=== PATIENT | female | born 1965 | race Caucasian/White ===

== ENCOUNTER 2018-04-29 13:06 | Emergency (ER) | payer BC ==
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
== END 2018-04-29 14:38 | disposition home or self-care (01) ==
LOC: ERS 13:06
DX: R07.89 Other chest pain (principal); V89.2XXA Person injured in unspecified motor-vehicle accident, traffic, initial encounter
CPT/HCPCS: 71045; G0390